=== PATIENT | female | born 1940 ===

== ENCOUNTER 2018-10-02 09:40 | Outpatient (CLI) | payer OTHER | END 2018-10-02 09:43 | disposition home or self-care (01) | LOC: MAMO-SONO 09:40 | DX: Z12.31 Encounter for screening mammogram for malignant neoplasm of breast (principal); Z87.898 Personal history of other specified conditions ==

== ENCOUNTER → 2018-10-20 | Outpatient (CLI) | payer OTHER | END | disposition home or self-care (01) | LOC: NUCLEAR 10:43 | DX: M81.0 Age-related osteoporosis without current pathological fracture (principal) ==

== ENCOUNTER 2020-08-19 07:59 | Outpatient (CLI) | payer OTHER | END 2020-08-19 08:13 | disposition home or self-care (01) | LOC: MAMO-SONO 07:59 | PROVIDERS: ATTEND Obstetrics & Gynecology | DX: Z12.31 Encounter for screening mammogram for malignant neoplasm of breast (principal); N64.59 Other signs and symptoms in breast ==